=== PATIENT | female | born 1955 | race Caucasian/White ===

== ENCOUNTER 2021-06-06 12:55 | Outpatient (CLI) | payer OTHER, SELFPAY ==
--- NOTE | 2021-06-06 13:15 | CT_ITS ---
STUDY: CT CHEST WITH CONTRAST ENHANCEMENT OF 1321 HOURS ON 06/06/2021 REASON FOR EXAM: 66-year-old female with left vocal cord paralysis. RADIATION DOSAGE (If Supplied By Facility): CTDIvol = ( 13.52 ) mGy, DLP = ( 893.25 ) mGycm TECHNIQUE: Transaxial imaging was performed following intravenous administration of IV 100mL Isovue-300. Individualized dose optimization techniques were used for this CT. COMPARISON: None. FINDINGS: Normal thyroid gland. No thyroid cystic and solid mass lesions. Dominant right jugular vein. Normal common carotid arteries. No mass lesions or adenopathy in the lower neck. No mediastinal or hilar lymphadenopathy. No mediastinal mass lesions. Borderline cardiomegaly. No pulmonary thromboembolism. No thoracic aortic dissection or aneurysm. No pulmonary infiltrates, atelectasis, effusion, or pulmonary mass lesions. Normal osseous structures. CT/Chest WITH Contrast IMPRESSION: 1. No lower neck, mediastinal, or pulmonary mass lesions. 2. Normal thyroid gland without cystic or solid mass lesions. 3. No evidence of lower neck, mediastinal, or perihilar lymphadenopathy. 4. Borderline cardiomegaly without heart failure. 5. No other evidence of active cardiopulmonary disease. 6. No pulmonary thromboembolism. 7. No thoracic aortic dissection or aneurysm. Electronically Signed: Israel Denney MD at 19:28 EDT ,
--- NOTE | 2021-06-06 13:15 | CT_ITS ---
STUDY: CT SOFT TISSUE NECK WITH CONTRAST REASON FOR EXAM: Female, 66 years old. L VOCAL CORD PARALYSIS RADIATION DOSAGE (If Supplied By Facility): CTDIvol = ( 13.52 ) mGy, DLP = ( 893.25 ) mGycm TECHNIQUE: The patient was scanned in a multi-detector CT scanner. High resolution transaxial imaging was performed following intravenous administration of IV 100mL Isovue-300. Sagittal and coronal images were reconstructed. Individualized dose optimization techniques were used for this CT. COMPARISON: None. FINDINGS: Normal bilateral parotid glands. 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 Normal bilateral parapharyngeal spaces. Normal bilateral carotid spaces. Normal bilateral sublingual and submandibular glands and spaces. Normal visualized nasopharynx. Normal retropharyngeal space. Normal perivertebral space. Normal visualized bilateral faucial tonsils. The visualized tongue, tongue base and oropharynx are normal. The visualized cervical lymph nodes (levels I-) are within normal size limits, and maintain normal morphology. There is no demonstrated solid or cystic mass lesion. There is no abnormal contrast enhancement. Normal epiglottis, bilateral vallecula and hypopharynx. The pre-epiglottic and paraglottic adipose spaces are normal. Normal visualized bilateral piriform sinuses, aryepiglottic folds, vocal cords, and arytenoid-cricoid articulations. Normal subglottic trachea. Normal bilateral lobes of the thyroid gland. Normal visualized pulmonary apices. Normal visualized paranasal sinuses. Normal visualized cervical spine. CT/Soft Tissue Neck WITH Contrast IMPRESSION: Normal enhanced CT examination of the soft tissues of the neck. Electronically Signed: Ashutosh Rudolph MD at 14:01 EDT ,
[2021-06-06 13:16] LABS: CREATININE FINGERSTICK 0.6 mg/dL (0.55-1.02); EGFR FINGERSTICK > 60.0000 mL/min (>60)
== END 2021-06-06 23:59 | disposition home or self-care (01) ==
LOC: CT 12:58
PROVIDERS: PCP Family Medicine; Referring Provider Otolaryngology; Visit Provider Otolaryngology
DX: J38.01 Paralysis of vocal cords and larynx, unilateral (principal)
CPT/HCPCS: 70491; 71260; Q9967; A4216